=== PATIENT | male | born 1940 | race Caucasian/White ===

== ENCOUNTER 2018-01-29 07:58 | Day surgery (SDC) | payer OTHER, BC ==
[2018-01-28 17:50] VITALS: BMI 29.6
[2018-01-29 08:44] LABS: INR 0.98 (0.83-1.09); PROTHROMBIN TIME (PATIENT) 11.1 SEC (9.7-13.0)
[2018-01-29 08:47] LABS: ACTIVATED PTT 26.9 SECONDS (25.2-36.5)
[2018-01-29] MEDS ORDERED: BUPIVACAINE HCL/PF 0.25% (2.5MG/ML) 10 ML VIAL ONE (10:03)
[2018-01-29] MEDS ORDERED: MIDAZOLAM HCL 2 MG/2 ML SINGLE DOSE VIAL ONE ×3 (10:05→10:56)
[2018-01-29] MEDS ORDERED: ceFAZolin SODIUM 1 GM VIAL IVPB ONE (10:32)
[2018-01-29] MEDS ORDERED: SODIUM CHLORIDE 0.9% P/F 10 ML VIAL IJ ONE (10:34)
[2018-01-29] MEDS ORDERED: GENTAMICIN SO4 80 MG/2 ML VIAL ONE (10:34)
[2018-01-29] MEDS ORDERED: ceFAZolin SODIUM 1 GM VIAL ONE (10:34)
[2018-01-29] MEDS ORDERED: GENTAMICIN SO4 80 MG/2 ML VIAL IVPB ONE (10:34)
[2018-01-29] MEDS ORDERED: PROMETHAZINE HCL 25 MG/1 ML VIAL IVPUSH PRN (11:36)
[2018-01-29] MEDS ORDERED: ONDANSETRON 4 MG/2 ML VIAL IVPUSH PRN (11:36)
[2018-01-29] MEDS ORDERED: oxyCODONE HCL 5 MG TABLET PO PRN (11:39)
--- NOTE | 2018-01-29 11:41 | OP ---
Operative Note - Note: Operative Date: 01/29/18 Pre-Operative Diagnosis: BPH/retention Operation: cysto/bipolar transurethral vaporization/resection prostate Findings: BPH Post-Operative Diagnosis: Same as Pre-op Surgeon: Yaron Anderson Anesthesiologist/CAT SWAMPER: Marc Hdz Anesthesia: Spinal Specimens Removed: prostate chips Estimated Blood Loss (mls): 20 Operative Report Dictated: Yes
[2018-01-29] MEDS ORDERED: LACTATED RINGERS SOLUTION 1,000 ML IV SCH (11:45)
[2018-01-29] MEDS ORDERED: ELECTROLYTE-148 SOLN 1,000 ML IV SCH (11:45)
--- NOTE | 2018-01-29 12:29 | OP ---
DATE OF OPERATION: DATE OF DICTATION: 01/29/2018 PREOPERATIVE DIAGNOSIS: Benign prostate hypertrophy with urinary retention. POSTOPERATIVE DIAGNOSIS: Benign prostate hypertrophy with urinary retention. PROCEDURE: Cystoscopy with transurethral vaporization and resection of prostate. SURGEON: Amy Singer MD INDICATIONS: Patient is a 77-year-old male with BPH and urinary retention, failed voiding trials who after reviewing treatment options, elected to undergo bipolar transurethral vaporization and resection of prostate. Understood risk of bleeding, infection, impotence, incontinence, stricture formation, persistent urinary retention, potential need for additional procedures, potential injury to adjacent organs. DESCRIPTION OF PROCEDURE: After informed consent was obtained, the patient was taken to the OR and placed supine on the operative table. dormitory maid administered and spinal anesthesia was then given. He was prepped and draped in the dorsal lithotomy position. He was given 2 g of Ancef and 160 of gentamycin. The Golden catheter was removed, and the rigid resectoscope was inserted without difficulty. Anterior urethra normal. Prostatic urethra was 4 cm and visually occlusive. There were no tumors or stones noted in the bladder. At this point, using resectoscope, the median bar tissue was taken down and some of the lateral bar tissue as well, and then using a mushroom electrode, the tissue was vaporized until a wide-open channel was created. There was no resection or vaporization within 1 cm of the verumontanum to minimize the chance of incontinence. All prostate chips were removed with the Scyron evacuator. With the procedure completed and the resectoscope situated just past the verumontanum looking into the bladder, a wide-open channel was seen. There was no injury to the ureters. Bilateral ureteral orifices were seen in normal anatomic position. Resectoscope was then removed and then a 24-Martiniquais Golden was then placed to straight drainage. [place]-tinged urine was retrieved. The patient was woken from anesthesia and transferred to the recovery room in stable condition. There were no complications. ESTIMATED BLOOD LOSS: Minimal. AMY SINGER M.D. AKASH/[id number]
[2018-01-29 12:56] VITALS: TEMP 97
[2018-01-29 14:38] VITALS: BP 124/51; PULSE 58
--- NOTE | 2018-01-30 17:34 | PATH ---
Surgical Pathology Report Patient Name: CATERINA GIBSON [facility]. Rec. #: [id number] /Age/Gender: 1940 (Age: 77) / M Account: [id number] Location: [facility] SURGICAL Taken: 01/29/2018 Received: 01/29/2018 Reported: 01/30/2018 Physicians: Yaron Anderson M.D. Specimen(s) Received PROSTATE CHIPS Clinical History BPH with lower urinary tract symptoms Final Diagnosis PROSTATE, TRANSURETHRAL RESECTION OF PROSTATE: BENIGN PROSTATIC TISSUE WITH FOCAL ACUTE AND CHRONIC INFLAMMATION, ACINAR ATROPHY, CYSTIC CHANGES, GLANDULAR AND STROMAL HYPERPLASIA. Electronically Signed Meliza Mcgregor M.D. Gross Description Received in formalin, labeled with the patient's name and indicated on the requisition to be prostate tissue, is a 9 g, 7.0 x 4.5 x 0.5 cm aggregate of vazquez, irregular, firm to rubbery portions of tissue, consistent with prostate tissue. The specimen is entirely submitted in 7 cassettes. /01/29/2018 saudi01/29/2018
== END 2018-01-29 14:20 | disposition home or self-care (01) ==
LOC: JASU-SURG 07:58
PROVIDERS: ATTEND Urology
PROC: 0VT08ZZ Resection of Prostate, Via Natural or Artificial Opening Endoscopic (ICD-10-PCS; principal; 2018-01-29 10:00)
DX: N40.1 Benign prostatic hyperplasia with lower urinary tract symptoms (principal); R33.8 Other retention of urine
CPT/HCPCS: 36415; 82947; 82962; 85610; 85730; 88305-TC; 94760

== ENCOUNTER 2022-09-13 17:16 | Observation (INO) | payer OTHER, BC ==
[2022-09-13 17:22] VITALS: RESP 18; BMI 27.9
[2022-09-13 18:57] LABS: BASO % 0.8 % (0-2.0); EOS % 1.6 % (0-4.5); HEMOGLOBIN 12.8 GM/dL (11.7-16.9); LYMPH % 21.5 % (8-40); MCH 29.2 pg (25.7-33.7); MCHC 33.7 g/dl (32.0-35.9); MEAN CELL VOLUME 86.8 fl (80-96); MONO % 11.1 % (3.8-10.2); PLATELET COUNT 198 10^3/uL (134-434); RBC 4.38 M/mm3 (4.00-5.60); RDW 14.2 % (11.9-15.9); WHITE BLOOD COUNT 8.5 K/mm3 (4.0-10.0)
[2022-09-13 19:13] LABS: ALBUMIN 3.6 g/dl (3.4-5.0); BLOOD UREA NITROGEN 62.7 mg/dL (7-18); CALCIUM 9.6 mg/dL (8.5-10.1)
[2022-09-13 19:17] LABS: CREATININE 2.3 mg/dL (0.55-1.3)
[2022-09-13 19:18] LABS: BILIRUBIN,TOTAL 0.3 mg/dL (0.2-1); TOT PROT 7.3 g/dl (6.4-8.2)
[2022-09-13 20:38] LABS: BLOOD UREA NITROGEN 61.2 mg/dL (7-18); CALCIUM 9.6 mg/dL (8.5-10.1)
[2022-09-13] MEDS ORDERED: LACTATED RINGERS SOLUTION 1000 ML INFUS.BAG IV ONE (21:20)
[2022-09-13 21:46] VITALS: BP 110/64; PULSE 60; TEMP 98
[2022-09-13 22:53] LABS: EPI CELLS 2 /uL (0-25.1); HYALINE CASTS 1 /uL (0-3.1); URINE APPEARANCE CLEAR; URINE BACTERIA 1 /uL (0-1359); URINE BILIRUBIN NEGATIVE (NEGATIVE); URINE COLOR YELLOW; URINE GLUCOSE (UA) 3+ (NEGATIVE); URINE KETONE NEGATIVE (NEGATIVE); URINE LEUK ESTERASE TRACE (NEGATIVE); URINE NITRITE NEGATIVE (NEGATIVE); URINE PROTEIN 1+ (NEGATIVE); URINE RBC 10 /uL (0-23.9); URINE UROBILINOGEN 0.2 mg/dL (0.2-1.0); URINE WBC 36 /uL (0-25.8)
[2022-09-14] MEDS ORDERED: SODIUM CHLORIDE 1,000 ML IV SCH (00:15)
[2022-09-14 02:02] LABS: ALBUMIN 3.6 g/dl (3.4-5.0); BLOOD UREA NITROGEN 58.2 mg/dL (7-18); CALCIUM 9.5 mg/dL (8.5-10.1); MAGNESIUM 1.8 mg/dL (1.8-2.4)
[2022-09-14 02:05] LABS: PHOSPHOROUS 4.2 mg/dL (2.5-4.9)
[2022-09-14 02:07] LABS: BILIRUBIN,TOTAL 0.5 mg/dL (0.2-1)
[2022-09-14] MEDS ORDERED: INSULIN SLIDING SCALE (NOVOLOG) 1 VIAL SQ SCH (07:00)
[2022-09-14] MEDS ORDERED: RIVAROXABAN 20 MG TABLET PO SCH (10:00)
[2022-09-14] MEDS ORDERED: BUDESONIDE/FORMETEROL FUMARATE 160/4.5 mcg INHALER IH SCH (10:00)
[2022-09-14] MEDS ORDERED: TAMSULOSIN HCL 0.4 MG CAP PO SCH (10:00)
[2022-09-14] MEDS ORDERED: ROSUVASTATIN CA 20 MG TABLET PO SCH (22:00)
== END 2022-09-14 01:35 | disposition left against medical advice (07) ==
LOC: JER 17:16 → INTOOBSV 22:38 → JERBED 22:38
PROVIDERS: ADMIT Internal Medicine; ATTEND Internal Medicine
PROC: 3E0337Z Introduction of Electrolytic and Water Balance Substance into Peripheral Vein, Percutaneous Approach (ICD-10-PCS; principal; 2022-09-13)
DX: E87.5 Hyperkalemia (principal); N17.9 Acute kidney failure, unspecified; I13.0 Hypertensive heart and chronic kidney disease with heart failure and stage 1 through stage 4 chronic kidney disease, or unspecified chronic kidney disease; J44.9 Chronic obstructive pulmonary disease, unspecified; E11.22 Type 2 diabetes mellitus with diabetic chronic kidney disease; I11.0 Hypertensive heart disease with heart failure; I50.9 Heart failure, unspecified; K92.9 Disease of digestive system, unspecified; N40.0 Benign prostatic hyperplasia without lower urinary tract symptoms; Z87.891 Personal history of nicotine dependence; N18.9 Chronic kidney disease, unspecified
CPT/HCPCS: 0241U-QW; 36415; 76775-TC; 80048; 80053; 81003; 82570; 83735; 84100; 84156; 85025; 87086; 93005; 93010; 96360; 96361; 99285-25; G0378

== ENCOUNTER 2024-10-22 18:24 | Emergency (ER) | payer OTHER, BC ==
[2024-10-22 18:34] VITALS: BP 155/55; PULSE 64; RESP 16; TEMP 98.3; BMI 24.3
[2024-10-22] MEDS ORDERED: ACETAMINOPHEN 325 MG TABLET (FP) ONE (19:16)
[2024-10-22] MEDS ORDERED: LIDOCAINE 5% TOPICAL PATCH ONE (19:17)
[2024-10-22] MEDS: ACETAMINOPHEN 325 MG TABLET (FP) PO ONE (19:24)
[2024-10-22] MEDS: LIDOCAINE 5% TOPICAL PATCH TP ONE (20:01)
[2024-10-22] MEDS ORDERED: LIDOCAINE PATCH REMOVAL MC SCH (22:00)
== END 2024-10-22 20:20 | disposition left against medical advice (07) ==
LOC: JER 18:24
DX: R07.89 Other chest pain (principal); W01.0XXA Fall on same level from slipping, tripping and stumbling without subsequent striking against object, initial encounter; Y92.009 Unspecified place in unspecified non-institutional (private) residence as the place of occurrence of the external cause
CPT/HCPCS: 70450-TC; 71046-TC-FY; 71250-TC; 74176-TC; 99284-25